=== PATIENT | female | born 1990 | race Caucasian/White ===

== ENCOUNTER 2018-01-16 07:05 | Emergency (ER) | payer MEDICAID, OTHER ==
[~2018-01-16] VITALS: Ht 162.6 cm; Wt 53.1 kg
[~2018-01-16 07:05] MED LIST: TRAM50TA PO
[2018-01-16 07:07] VITALS: BP 105/65; PULSE 93; RESP 16; TEMP 97.8; O2SAT 100
[2018-01-16] MEDS ORDERED: LIDOCAINE VISCOUS 2% SOLN 15 ML UDC PO ONE (07:30)
[2018-01-16] MEDS ORDERED: ALUMINUM/MAGNESIUM/SIMETH 30 ML CUP PO ONE (07:30)
[2018-01-16] MEDS ORDERED: ALBUTEROL SULFATE 90 MCG/ACT HFA 8 GM INHALER INH ONE (07:30)
[2018-01-16] MEDS ORDERED: IBUPROFEN 600 MG TAB PO ONE (07:30)
[2018-01-16] MEDS ORDERED: BENZ100 PO (07:52)
[2018-01-16] MEDS ORDERED: GUAISYP4 PO (07:52)
--- NOTE | 2018-01-16 07:52 | PD ---
HPI Chief Complaint: Cold / Flu Symptoms Time Seen by Provider: 07:26 Travel History International Travel<30 days: No Contact w/Intl Traveler<30days: No Traveled to known affect area: No History of Present Illness HPI 27-year-old female complains of sore throat generalized aches and pains fever and cough. She reports diarrhea. No vomiting. Duration about 2-1/2 days. Onset gradual. Timing constant. Patient denies sick contacts. PFSH Past Medical History Medical History: Denies Significant Hx Immunizations Current: Yes (UTD) Tetanus Vaccination: < 5 Years Influenza Vaccination: No ?: Not LMP: 01/10/18 Past Surgical History Surgical History: No Previous Surgery Social History Alcohol Use: Yes (RARELY) Tobacco Use: No Substance Use: No Allergies-Medications (Allergen,Severity, Reaction): Coded Allergies: No Known Allergies (Verified Allergy, Unknown, 01/16/18) Reported Meds & Prescriptions Reported Meds & Active Scripts Active No Active Prescriptions or Reported Medications Review of Systems General / Constitutional: Positive: Fever HENT: No: Headaches Cardiovascular: No: Chest Pain or Discomfort Respiratory: Positive: Cough, No: Shortness of Breath Physical Exam Narrative GENERAL: 27 -year-old female pleasant well-nourished well-developed no acute distress, occasional cough Vital Signs Date Time Temp Pulse Resp B/P (MAP) Pulse Ox O2 Delivery O2 Flow Rate FiO2 01/16/18 07:07 97.8 93 16 105/65 (78) 100 ENT: Posterior oropharynx widely patent. No anterior neck adenopathy. No erythema exudate or asymmetry or tonsillar hypertrophy. SKIN: Warm and dry. HEAD: Normocephalic. EYES: No scleral icterus. No injection or drainage. NECK: Supple, trachea midline. No JVD or lymphadenopathy. CARDIOVASCULAR: Regular rate and rhythm without murmurs, gallops, or rubs. RESPIRATORY: Breath sounds equal bilaterally. No accessory muscle use. GASTROINTESTINAL: Abdomen soft, non-tender, nondistended. MUSCULOSKELETAL: No cyanosis, or edema. BACK: Nontender without obvious deformity. No CVA tenderness. Data Data Last Documented VS Vital Signs Date Time Temp Pulse Resp B/P (MAP) Pulse Ox O2 Delivery O2 Flow Rate FiO2 01/16/18 07:07 97.8 93 16 105/65 (78) 100 Orders Orders Al-Mag Hy-Si 40-40-4 Mg/Ml Liq (Mag-Al P (01/16/18 07:30) Lidocaine 2% Viscous (Xylocaine 2% Visco (01/16/18 07:30) Albuterol Hfa Inh (Proair Hfa Inh) (01/16/18 07:30) Ibuprofen (Motrin) (01/16/18 07:30) MDM Medical Decision Making Medical Screen Exam Complete: Yes Emergency Medical Condition: Yes Medical Record Reviewed: Yes Differential Diagnosis Flu, walking pneumonia, URI, pharyngitis Narrative Course Presentation is more or less consistent with a nonspecific URI. Seen multiple similar prior episodes recently. We are out of the window for flu this season. Symptomatic control. Work note. Diagnosis Primary Impression: URI (upper respiratory infection) Qualified Codes: J06.9 - Acute upper respiratory infection, unspecified Referrals: Primary Care Physician call for appointment Med/Other Pt SpecificInfo: Prescription(s) given Scripts Guaifenesin-Codeine Liq (Guaifenesin AC Liq) 100-10 Mg/5 Ml Syrp 10 ML PO Q6H Y for COUGH for 5 Days, #1 BOTTLE 0 Refills Prov: Herson Sotomayor MD 01/16/18 Benzonatate (Tessalon Perles) 100 Mg Cap 100 MG PO TID Y for COUGH, #20 CAP 0 Refills Prov: Herson Sotomayor MD 01/16/18 Disposition: 01 DISCHARGE HOME Condition: Stable Herson Sotomayor MD January 16, 2018 07:52
== END 2018-01-16 08:06 | disposition home or self-care (01) ==
LOC: PHED 07:05
DX: J06.9 Acute upper respiratory infection, unspecified (principal)
CPT/HCPCS: 99283